=== PATIENT | female | born 1955 | race Caucasian/White ===

== ENCOUNTER → 2022-07-14 | Outpatient (CLI) | payer OTHER | END | disposition home or self-care (01) | LOC: RAH 12:11 | PROVIDERS: ATTEND Neurological Surgery | DX: M50.122 Cervical disc disorder at C5-C6 level with radiculopathy (principal); M47.22 Other spondylosis with radiculopathy, cervical region; M48.02 Spinal stenosis, cervical region | CPT/HCPCS: 72141 ==